=== PATIENT | female | born 1975 | race Caucasian/White ===

== ENCOUNTER → 2017-05-09 | Outpatient (CLI) | payer BC ==
[2017-05-09 12:40] LABS: THYROID STIMULATING HORMONE 0.63 uIu/ml (0.300-4.500)
== END | disposition home or self-care (01) ==
LOC: C.LAB1850 09:59
PROVIDERS: ATTEND Internal Medicine Endocrinology, Diabetes & Metabolism
DX: E03.9 Hypothyroidism, unspecified (principal)

== ENCOUNTER → 2017-11-21 | Outpatient (CLI) | payer BC ==
--- NOTE | 2017-11-21 10:11 | DIAGNOSTIC IMAGING REPORT ---
SOFT TISS HEAD/NECK-THYROID CLINICAL HISTORY: 42 years-old Female presenting with E04.2 Multiple thyroid nodules. TECHNIQUE: Real-time grayscale and color Doppler ultrasound imaging of the thyroid and base of the neck was performed. COMPARISON: None. FINDINGS: Right lobe: Normal echogenicity and echotexture of the thyroid parenchyma peripheral to a predominantly cystic nodule. The right lobe of the thyroid measures 4.4 x 2.1 x 2.6 cm. No parenchymal hyperemia. Nodules enumerated below: 1. Primarily cystic nodule measuring 2.3 x 2.0 x 2.1 cm with a focal soft tissue mural nodule measuring 7 x 9 x 7 mm. This is most consistent with a spongiform nodule (very low suspicion pattern). Left lobe: Heterogeneous secondary to the presence of nodules. The left lobe of the thyroid measures 4.0 x 1.0 x 1.3 cm. No parenchymal hyperemia. Nodules enumerated below: 1. Hypoechoic well-defined 7 x 10 x 7 mm nodule in the interpolar region (intermediate suspicion pattern). 2. Hypoechoic well-defined 5 x 3 x 6 mm nodule at the lower pole (intermediate suspicion pattern). Isthmus: The isthmus measures 3 mm in thickness. No parenchymal hyperemia. No nodules. IMPRESSION: 1. Multinodular thyroid. 2. Two intermediate suspicion nodules in the left thyroid lobe. The 1 cm nodules borderline for recommendation of fine-needle aspiration by the [place] [employer] criteria. Continued follow-up recommended if biopsy is not performed. Electronically signed by: Darren Acosta M.D. 11/21/2017 10:10 AM Dictated Date/Time: 11/21/2017 10:05 AM
== END | disposition home or self-care (01) ==
LOC: C.ULTR 09:32
PROVIDERS: ATTEND Internal Medicine Endocrinology, Diabetes & Metabolism
DX: E04.2 Nontoxic multinodular goiter (principal)